=== PATIENT | female | born 1955 | race Caucasian/White ===

== ENCOUNTER 2017-07-01 22:12 | Emergency (ER) | payer OTHER ==
[~2017-07-01] VITALS: Ht 157.5 cm; Wt 90.9 kg
[2017-07-01] MEDS ORDERED: HYDROmorphone 1 MG/ML, 1ML IM STA (22:30)
[2017-07-01] MEDS ORDERED: HYDROmorphone 1 MG/ML, 1ML ONE (22:33)
[2017-07-01] MEDS ORDERED: PREGABALIN 100 MG CAPSULE PO ONE (22:44)
[2017-07-01] MEDS ORDERED: KETOROLAC 30 MG/1 ML ONE (22:58)
[2017-07-01] MEDS ORDERED: KETOROLAC 30 MG/1 ML IM ONE (23:00)
[2017-07-02 00:08] VITALS: BP 143/78
== END 2017-07-02 00:05 | disposition home or self-care (01) ==
LOC: ED 23:59
DX: G89.29 Other chronic pain (principal); M79.672 Pain in left foot; M79.671 Pain in right foot; G62.9 Polyneuropathy, unspecified; I10 Essential (primary) hypertension; G25.81 Restless legs syndrome
CPT/HCPCS: 96372; 99284; J1170; J1885

== ENCOUNTER 2017-07-03 03:22 | Emergency (ER) | payer MEDICARE ==
[~2017-07-03] VITALS: Ht 157.5 cm; Wt 91.9 kg
[2017-07-03 03:29] VITALS: BP 125/74
[2017-07-03] MEDS ORDERED: ACETAMINOPHEN 325 MG TABLET ONE (03:46)
[2017-07-03] MEDS ORDERED: ACETAMINOPHEN 325 MG TABLET PO ONE (04:00)
== END 2017-07-03 04:01 | disposition home or self-care (01) ==
LOC: ED 03:39
DX: M25.561 Pain in right knee (principal); G25.81 Restless legs syndrome; I10 Essential (primary) hypertension
CPT/HCPCS: 99282